=== PATIENT | female | born 1985 | race American Indian/Alaskan Native ===

== ENCOUNTER 2020-01-24 11:48 | Emergency (ER) | payer OTHER ==
[2020-01-24 11:57] VITALS: BP 124/71
--- NOTE | 2020-01-24 12:07 | Emergency Department Report ---
Blank Doc - Documentation Documentation: 35-year-old female that presents with vaginal bleeding and pelvic cramping. This initial assessment/diagnostic orders/clinical plan/treatment(s) is/are subject to change based on patient's health status, clinical progression and re- assessment by fellow clinical providers in the ED. Further treatment and workup at subsequent clinical providers discretion. Patient/guardians urged not to elope from the ED as their condition may be serious if not clinically assessed and managed. Initial orders include: 1- Patient sent to [facility] for further evaluation and treatment 2- UA 3- labs
[2020-01-24 12:58] LABS: Basophils # (Auto) 0.1 K/mm3 (0.0-0.1); Basophils % (Auto) 0.6 % (0.0-1.8); Eosinophils # (Auto) 0.3 K/mm3 (0.0-0.4); Eosinophils % (Auto) 2.2 % (0.0-4.3); Hematocrit 37.1 % (30.3-42.9); Lymphocytes # (Auto) 2.4 K/mm3 (1.2-5.4); Lymphocytes % (Auto) 20.6 % (13.4-35.0); Mean Corpuscular HGB Conc 33 % (30-34); Mean Corpuscular Volume 92 fl (79-97); Monocytes # (Auto) 0.9 K/mm3 (0.0-0.8); Platelet Count 152 K/mm3 (140-440); Red Blood Count 4.02 M/mm3 (3.65-5.03); Red Cell Distribution Width 13.5 % (13.2-15.2)
--- NOTE | 2020-01-24 13:03 | Ultrasound Report ---
FIRSTTRIMESTER OBSTETRIC ULTRASOUND HISTORY: 5 weeks by dates. Vaginal spotting. COMPARISON: None. TECHNIQUE: Routine transabdominal OB ultrasound performed. She refused transvaginal ultrasound. FINDINGS: Uterus: Normal size with normal contour. Uterus measures 8.6 x 4.6 x 5.3 cm. Uterine contents: Heterogeneous echogenicity with no gestational sac or embryo identified. No cardiac activity. Ovaries: The right ovary is normal in size and appearance and measures 5.0 x 2.1 x 3.4 cm. The left ovary is normal in size and appearance and measures 4.2 x 2.5 x 2.9 cm. An oval cyst smooth heteroge neous predominantly hyperechoic structure within the left ovary measures 1.4 cm. No adnexal mass or free fluid. IMPRESSION: 1. No intrauterine or extrauterine identified. 2. Suspect failed intrauterine with retained products. 3. The accuracy of the examination is somewhat diminished by the inability to do transvaginal imaging . 4. A left ovarian dermoid cyst versus hemorrhagic cyst versus benign calcification of the ovary. Signer Name: Marcell Felipe MD Signed: 01/24/2020 12:59 PM Workstation Name: [id number]
--- NOTE | 2020-01-24 13:41 | Emergency Department Report ---
ED HPI - General Chief complaint: Vaginal Bleeding Stated complaint: MISSCARRIAGE/PAIN Time Seen by Provider: 01/24/20 12:06 Source: patient Mode of arrival: Ambulatory Limitations: No Limitations - History of Present Illness Initial comments: Patient is a 35-year-old -[place] who comes to the ER today complaining of vaginal bleeding and . Her last menstrual cycle was December 19, 2019. This is her second . She did have a positive home test. However, she has not seen an [employer]ER. Patient has no vaginal discharge or dysuria. She has no back pain. No fever or chills. No vomiting or diarrhea. Patient denies any other medical or surgical history. She is on no medications. She denies cigarettes alcohol or drugs. Ultrasound noted as ordered by BURKE in triage. Patient had refused a transvaginal ultrasound because she does not have insurance. After seeing the results of the abdominal ultrasound I have spoke with Berenice the [employer] sl[employer] sawyer for my [employer]. She recommends a transvaginal ultrasound to rule out ectopic . MD Complaint: vaginal bleeding Associated symptoms: vaginal bleeding Vaginal bleeding: light :: Yes OB History - Current : no complications OB History - Previous Pregnancies: no complications Last menstrual period: 12/19/19 Pre-jozef care: none - Related Data : 2 Para: 1 Allergies Allergy/AdvReac Type Severity Reaction Status Date / Time No Known Allergies Allergy Unverified 01/24/20 11:51 ED Review of Systems ROS: Stated complaint: MISSCARRIAGE/PAIN Other details as noted in HPI Comment: All other systems reviewed and negative ED Past Medical Hx - Past Medical History Previous Medical History?: No - Surgical History Past Surgical History?: No - Family History Family history: no significant - Social History Smoking Status: Never Smoker Substance Use Type: Alcohol ED Physical Exam - General Limitations: No Limitations General appearance: alert, in no apparent distress - Head Head exam: Present: atraumatic, normocephalic - Eye Eye exam: Present: normal appearance - ENT ENT exam: Present: mucous membranes moist - Neck Neck exam: Present: normal inspection - Respiratory Respiratory exam: Present: normal lung sounds bilaterally. Absent: respiratory distress - Cardiovascular Cardiovascular Exam: Present: regular rate, normal rhythm. Absent: systolic murmur, diastolic murmur, rubs, gallop - GI/Abdominal GI/Abdominal exam: Present: soft, normal bowel sounds - Extremities Exam Extremities exam: Present: normal inspection - Back Exam Back exam: Present: normal inspection - Neurological Exam Neurological exam: Present: alert, oriented X3 - Psychiatric Psychiatric exam: Present: normal affect, normal mood - Skin Skin exam: Present: warm, dry, intact, normal color. Absent: rash ED Course Vital Signs 01/24/20 11:53 Temperature 98.1 F Pulse Rate 87 Respiratory 18 Rate Blood Pressure 124/71 O2 Sat by Pulse 99 Oximetry ED Medical Decision Making - Lab Data Result diagrams: 01/24/20 12:32 - Radiology Data Radiology results: report reviewed, image reviewed - Medical Decision Making Labs 01/24/20 01/24/20 01/24/20 12:32 12:32 12:32 WBC 11.6 H RBC 4.02 Hgb 12.0 Hct 37.1 MCV 92 MCH 30 MCHC 33 RDW 13.5 Plt Count 152 Lymph % (Auto) 20.6 [place] % (Auto) 8.0 H Eos % (Auto) 2.2 Baso % (Auto) 0.6 Lymph # 2.4 [place] # 0.9 H Eos # 0.3 Baso # 0.1 Seg Neutrophils % 68.6 Seg Neutrophils # 8.0 H HCG, Quant 4208 H Blood Type A NEGATIVE Vital Signs 01/24/20 11:53 Temperature 98.1 F Pulse Rate 87 Respiratory 18 Rate Blood Pressure 124/71 O2 Sat by Pulse 99 Oximetry RHOGAM ORDERED- PT RH NEG PT INFORMED OF FINDINGS. SHE HAD REFUSED TRANSVAG US I'VE SPOKE WITH BERENICE AT [facility] [place] AND THEY REC TRANSVAG PT WILL NOW COMPLY IF NOTHING IN TUBES- FOLLOW UP IN 48 HOURS. 1453 transvag noted pt updated dc home with obgyn follow up in 48 hours- pt and boyfriend verbalize understanding of dc plan of care - Differential Diagnosis RO AB Critical care attestation.: If time is entered above; I have spent that time in minutes in the direct care of this critically ill patient, excluding procedure time. ED Disposition Clinical Impression: Threatened , Rh incompatibility, Disposition: DC-01 TO HOME OR SELFCARE Is pt being admited?: No Does the pt Need Aspirin: No Condition: Stable Instructions: Threatened Miscarriage (ED) Additional Instructions: PELVIC REST YOU WERE GIVEN RHOGAM TODAY STAY WELL HYDRATED WITH WATER MOTRIN OR TYLENOL FOR PAIN Referrals: MARLI,DIANA D, MD [Staff Physician] - 3-5 Days Time of Disposition: 14:11
--- NOTE | 2020-01-24 14:48 | Ultrasound Report ---
FIRSTTRIMESTER TRANSVAGINAL OBSTETRIC ULTRASOUND HISTORY: Spotting. COMPARISON: A same-day transabdominal pelvic ultrasound. TECHNIQUE: Routine transvaginal OB ultrasound performed. FINDINGS: Uterus: Normal size. Gestational Sac: Well-defined oval shape and intrauterine in location. Measures 7 mm diameter. A yolk sac is identified. However, no cardiac activity or embryo identified. A tiny subchorionic blee d adjacent to the sac. Ovaries: The right ovary is normal in size with normal blood flow, measuring 3.2 x 1.8 x 1.7 cm. A c omplex mass of the ovary measures 1 cm. The left ovary is normal in size with normal blood flow, alicja suring 3.8 x 2.2 x 2.9 cm. An oval smooth 1.5 cm heterogeneous but predominantly hyperechoic structur e within the ovary as seen on the transabdominal exam. Additional findings: Trace free fluid. IMPRESSION: 1. Single intrauterine at 5 weeks gestation based on sac size and the presence of a yolk sa c. 2. A tiny subchorionic bleed adjacent to the sac. 3. A complex mass of the right ovary is probably a hemorrhagic cyst. 4. A predominantly hyperechoic mass of the left ovary is likely a dermoid cyst, benign calcification or chronic hemorrhagic cyst of the ovary. Signer Name: Marcell Felipe MD Signed: 01/24/2020 2:43 PM Workstation Name: [id number]
[2020-01-24 15:24] LABS: Bilirubin,Urine NEG (Negative); Blood,Urine MOD (Negative); Color,Urine Straw (Yellow); Protein,Urine <15 mg/dL mg/dL (Negative); RBC,Urine < 1.0 /HPF (0.0-6.0); Urobilinogen,Urine < 2.0 mg/dL (<2.0)
== END 2020-01-24 18:00 | disposition home or self-care (01) ==
LOC: ED 11:48
DX: O20.0 Threatened abortion (principal); O36.0910 Maternal care for other rhesus isoimmunization, first trimester, not applicable or unspecified; Z3A.01 Less than 8 weeks gestation of pregnancy
CPT/HCPCS: 36415; 76801; 76817; 81001; 84702; 85025; 86850; 86900; 86901; 96372; 99284; J2790; 36430